=== PATIENT | male | born 2005 | race Caucasian/White ===

== ENCOUNTER 2024-12-22 10:48 | Emergency (ER) | payer SELFPAY ==
--- NOTE | ~2024-12-22 | XR_ITS ---
EXAMINATION: XR TOES 2 OR MORE VIEWS RIGHT HISTORY: trauma COMPARISON: There are no prior studies available for comparison. FINDINGS: Four views of the right great toe are submitted. Osseous mineralization is normal. There is no fracture or dislocation. The joint spaces are preserved. The soft tissues are unremarkable. XR/XR toe RT min 2V IMPRESSION: Unremarkable examination of the right great toe. Electronically signed by: Eliel Olivas MD 12/22/2024 11:27 AM EDT
[2024-12-22 11:00] VITALS: BP 142/84; PULSE 86; RESP 16; TEMP 36.1; O2SAT 98; BMI 41.3
--- NOTE | 2024-12-22 11:06 | ED.GENADULT ---
HPI - General Adult General Chief complaint: Extremity Injury, Lower Stated complaint: Stubbed Toe R Foot Time Seen by Provider: 12/22/24 12:06 Source: patient Mode of arrival: ambulatory Limitations: no limitations History of Present Illness ED Provider: Jono Valiente [facility] narrative: 19 yold male presents to the ED for right big toe pain. Patient states he stubbed his big and now more swollen and red. Patient has ingrown toenail before injuring big toe and than it got worse. Patient denies any fever or chills. Related Data Previous Rx's ?Medication ?Instructions ?Recorded cephalexin 500 mg capsule 500 mg PO BID #14 caps 12/22/24 triamcinolone acetonide 0.5 % 1 appl topical BID 2 weeks #15 12/22/24 topical cream grams Allergies Allergy/AdvReac Type Severity Reaction Status Date / Time No Known Allergies Allergy Verified 12/22/24 11:02 Review of Systems Review of Systems: Right big toe pain Yes all other systems are reviewed and are negative PMFSH Social History Social History Smoked in Last 30 Days: No Use of substances other than those prescribed or required for medical reasons: No Advance Directives: No Advance Directives Information Provided: Yes Advance Directives on File: No Physical Exam ED Vital Signs: Vital Signs - 24 hr 12/22/24 11:00 Temperature 97.0 F Pulse Rate 86 Respiratory Rate 16 Blood Pressure 142/84 H Pulse Oximetry 98 Oxygen Delivery Method Room Air BMI result Body Mass Index 41.3 Const General: cooperative, healthy appearing, comfortable, no acute distress, well developed, alert, awake and Physically active Orientation/consciousness: patient oriented x3 HENMT Head: Yes normal to inspection, Yes No palpable skull fracture present, Yes normocephalic and Yes atraumatic Eyes General: appearance normal, both eyes and all related structures Neck Neck: Yes normal visual inspection, Yes full ROM, Yes no lymphadenopathy, Yes no meningeal signs, Yes trachea midline, Yes supple, No anterior neck swelling and No tender Chest Chest palpation & inspection: normal inspection of the chest and normal palpation of entire chest wall Resp Effort & Inspection: normal respiratory effort and able to speak in complete sentences Auscultation: clear to auscultation bilaterally Cardio Jugular venous distension: no JVD Heart sounds: S1 normal heart sound present and S2 normal heart sound present GI Inspection: Yes normal to inspection Palpation (GI): Soft to palpation, not firm, nontender, no guarding and not rigid General: Yes no CVA tenderness Back/Spine/Pelvis Back: no CVA tenderness and No back tenderness Skin General skin exam: no rashes or lesions noted, elasticity normal and turgor normal Neuro General: patient oriented x3, gait normal, tone normal, moves all extremities, Normal light touch and pain sensation, no meningeal signs, no focal motor deficits, CN's II-XI intact bilaterally and normal sensation to monofilament Extrem Ankle/foot/toe images:  1. Positive for ingrown toenail with surrounding erythema of nail fold with tenderness. Negative for any pus discharge foul odor. Rest of extremity normal motor neurovascular exam intact Psych Appearance: grossly normal, well kempt and not disheveled Course Course Course Narrative: RME, this is a rapid medical exam performed by Curt Roy please refer to primary provider for complete H&P- patient's stubbed his toe a few days ago, right great toe. He reports pain and swelling to the area now. He appears to have an ingrown toenail on exam. Plan for x-ray Medications Administered Discontinued Medications Generic Name Dose Route Start Last Admin Trade Name Freq PRN Reason Stop Dose Admin Lidocaine HCl 5 ml 12/22/24 12:21 12/22/24 13:05 Lidocaine Hcl 2 % Mpf 5 Ml Vial INFILTRATI 12/22/24 12:22 Not Given ONCE ONE Lidocaine HCl 5 ml 12/22/24 12:21 12/22/24 13:05 Lidocaine Hcl 2 % Mpf 5 Ml Vial INFILTRATI 12/22/24 12:22 Not Given ONCE ONE Medical Decision Making Medical Decision Making [facility] Narrative: 19-year-old male presents to ED for right toe pain. Right total indicates ingrown toenail. Patient prefer excision over conservative treatment. 12:43pm: Patient's changes his mind and does not want excision of ingrown toenail who prefer conservative management. Patient is educated on soaking told him to warm motor with soap for 20 minutes 4 times a day and also high dose steroids. Patient explained worrisome signs and informed return to the ED immediately. Not suspecting osteomyelitis, gout, necrotizing fasciitis, compartment syndrome, arterial occlusion, any other life-threatening etiology. Differential Diagnosis Differential Diagnoses: The differential diagnosis associated with the presentation includes (Fracture dislocation ingrown toenail cellulitis) Admission/Observation Consideration of admission/observation: Escalation of care including admission/observation considered Independent Interpretation I performed an independent interpretation of an: Plain X-Ray Radiology Impression Discussion of test interpretation with radiology: I have reviewed the radiologist's reading. Independent Historian Clinical information obtained from an independent historian. History obtained from or confirmed by: Other (patient) Prescription Management I considered prescription management with: Pain Medication and Antibiotic Discharge Plan Discharge Clinical Impression: Ingrowing toenail Patient Disposition: Home, Self-Care Instructions: Ingrown Nail (ED), Warm Compress or Soak (ED) Additional Instructions: Recommend follow up with the primary care provider. Return to the ED for worsening foot pain, increased redness swelling, any fever, chills, bluish black discoloration, hotness, coldness, or any other concerning symptoms. Soak her foot in warm soapy water for 10-20 minutes twice daily and then after apply the steroid cream for 2 weeks rdering Physician: Jaden Roy Date of Service: 12/22/24 Procedure(s): XR toe RT min 2V Accession Number(s): [id number] cc: Jaden Roy; Physician,None ~ EXAMINATION: XR TOES 2 OR MORE VIEWS RIGHT HISTORY: trauma COMPARISON: There are no prior studies available for comparison. FINDINGS: Four views of the right great toe are submitted. Osseous mineralization is normal. There is no fracture or dislocation. The joint spaces are preserved. The soft tissues are unremarkable. XR/XR toe RT min 2V IMPRESSION: Unremarkable examination of the right great toe. 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
[2024-12-22 12:58] VITALS: BP 142/84; PULSE 86; RESP 16; TEMP 36.1; O2SAT 98
== END 2024-12-22 13:05 | disposition home or self-care (01) ==
PROVIDERS: Emergency Provider Emergency Medicine Emergency Medical Services
DX: S99.921A Unspecified injury of right foot, initial encounter (principal); L60.0 Ingrowing nail; M79.674 Pain in right toe(s); Y29.XXXA Contact with blunt object, undetermined intent, initial encounter; Y93.01 Activity, walking, marching and hiking; Y92.9 Unspecified place or not applicable; Y99.8 Other external cause status
CPT/HCPCS: 73660; 99283

== ENCOUNTER → 2024-12-22 11:07 | Outpatient (BNV) | payer MEDICAID, SELFPAY | PROVIDERS: Visit Provider Radiology Diagnostic Radiology | DX: M79.674 Pain in right toe(s) (principal); L60.0 Ingrowing nail | CPT/HCPCS: 73660 ==